=== PATIENT | female | born 1950 | race African-American/Black ===

== ENCOUNTER 2018-02-28 16:26 | Inpatient (IN) | payer OTHER ==
[2018-02-28 18:43] VITALS: BMI 18.5
--- NOTE | 2018-02-28 20:51 | HP ---
Admission ROS [facility] Chief Complaint: Seeking admission to rehab Allergies/Adverse Reactions: Allergies Allergy/AdvReac Type Severity Reaction Status Date / Time No Known Allergies Allergy Verified 02/28/18 19:29 History of Present Illness: 67 years old male with cocaine dependence is seeking admission to Rehab. This is patient;s first Rehab admission and first admission to [facility]. Patient reports medical history of hypertension, hyperlipidemia, anxiety and depression. She denies suicide attempt and suicidal ideation at this time. Exam Limitations: No Limitations - Ebola screening Have you traveled outside of the country in the last 21 days: No Have you had contact with anyone from an Ebola affected area: No Have you been sick,other than usual withdrawal symptoms: No Do you have a fever: No - Review of Systems Constitutional: No Symptoms Reported EENT: reports: No Symptoms Reported Respiratory: reports: No Symptoms reported Cardiac: reports: No Symptoms Reported GI: reports: No Symptoms Reported : reports: No Symptoms Reported Musculoskeletal: reports: No Symptoms Reported Integumentary: reports: No Symptoms Reported Neuro: reports: No Symptoms reported Endocrine: reports: No Symptoms Reported Hematology: reports: No Symptoms Reported Psychiatric: reports: No Sypmtoms Reported, Mood/Affect Appropiate, Orientated x3 Other Systems: Reviewed and Negative Patient History - Patient Medical History Hx Anemia: No Hx Asthma: No Hx Chronic Obstructive Pulmonary Disease (COPD): No Hx Cancer: No Hx Cardiac Disorders: No Hx Congestive Heart Failure: No Hx Hypertension: Yes (Benazapril) Hx Hypercholesterolemia: Yes (Simvarstatin) Hx Pacemaker: No HX Cerebrovascular Accident: No Hx Seizures: No Hx Dementia: No Hx Diabetes: No Hx Gastrointestinal Disorders: No Hx Liver Disease: No Hx Genitourinary Disorders: No Hx Sexually Transmitted Disorders: No Hx Renal Disease (ESRD): No Hx Thyroid Disease: No Hx Human Immunodeficiency Virus (HIV): No (Negative 2017) Hx Hepatitis C: No Hx Depression: Yes Hx Suicide Attempt: Yes (Denies suicide attempt or suicidal ideation at this time) Hx Bipolar Disorder: No Hx Schizophrenia: No - Patient Surgical History Past Surgical History: No - PPD History Previous Implant?: No Documented Results: Negative w/o proof Implanted On Prior [facility] Admission?: No PPD to be Administered?: Yes - Reproductive History Patient is a Female of Child Bearing Age (11 -55 yrs old): Yes LMP comment: Menopausal Patient : No - Smoking Cessation Smoking history: Current every day smoker Have you smoked in the past 12 months: Yes Aproximately how many cigarettes per day: 5 Hx Chewing Tobacco Use: No Initiated information on smoking cessation: Yes 'Breaking Loose' booklet given: 02/28/18 - Substance & Tx. History Hx Alcohol Use: No Hx Substance Use: Yes Substance Use Type: Cocaine Hx Substance Use Treatment: No Admission Physical Exam [facility] - Vital Signs Vital Signs: Vital Signs - 24 hr 02/28/18 18:40 Temperature 97.9 F Pulse Rate 78 Respiratory 18 Rate Blood Pressure 130/74 - Physical General Appearance: Yes: Within Normal Limits HEENTM: Yes: EOMI, Normal ENT Inspection, Normocephalic, Normal Voice, MARGUERITE Respiratory: Yes: Lungs Clear, Normal Breath Sounds, No Respiratory Distress Neck: Yes: Supple Breast: Yes: Breast Exam Deferred Cardiology: Yes: Regular Rhythm, Regular Rate Abdominal: Yes: Normal Bowel Sounds, Soft Genitourinary: Yes: Within Normal Limits Back: Yes: Normal Inspection Musculoskeletal: Yes: Within Normal Limits Extremities: Yes: Normal Capillary Refill, Normal Inspection Neurological: Yes: inoculator II-XII NML intact, Normal Mood/Affect Integumentary: Yes: Warm Lymphatic: Yes: Within Normal Limits - Diagnostic (1) Cocaine dependence Current Visit: Yes Status: Chronic (2) Hypertension Current Visit: Yes Status: Chronic (3) Hyperlipidemia Current Visit: Yes Status: Chronic Qualifiers: Hyperlipidemia type: unspecified Qualified Code(s): E78.5 - Hyperlipidemia , unspecified (4) Depression Current Visit: Yes Status: Chronic Qualifiers: Depression Type: unspecified Qualified Code(s): F32.9 - Major depressive disorder, single episode, unspecified (5) Anxiety Current Visit: Yes Status: Chronic Cleared for Admission [facility] - Detox or Rehab [facility] Level of Care: Observation Bed Claeared for Rehab Admission: Yes [facility] Breath Alcohol Content Breath Alcohol Content: 0 Urine Pregancy Test - Result Urine Test Results: Negative- NO Line Present Urine Drug Screen - Results Drug Screen Negative: No Urine Drug Screen Results: FRANCISCO-Cocaine Inpatient Rehab Admission - Initial Determination Are CD services needed?: Yes Free of communicable disease: Yes Not in need of hospitalization: Yes - Rehab Admission Criteria Previous failed treatment: Yes Poor recovery environment: Yes Comorbidities: Yes Lacks judgement: No Patient is meeting Inpatient Rehab admission criteria:: Yes
[2018-02-28] MEDS ORDERED: MAGNESIUM CITRATE 300 ML BOTTLE PO PRN (20:58)
[2018-02-28] MEDS ORDERED: LOPERAMIDE HCL 2 MG CAPSULE PO PRN (20:58)
[2018-02-28] MEDS ORDERED: ACETAMINOPHEN 325 MG TABLET (FP) PO PRN (20:58)
[2018-02-28] MEDS ORDERED: NICOTINE POLACRILEX 2 MG GUM BC PRN (20:58)
[2018-02-28] MEDS ORDERED: guaiFENesin/D-METHORPHAN HB 10 ML UNIT-DOSE CUPS PO PRN (20:58)
[2018-02-28] MEDS ORDERED: MAGNESIUM HYDROX 2400MG/30ML ORAL SUSPENSION 30 ML CUP PO PRN (20:58)
[2018-02-28] MEDS ORDERED: MENTHOL/PHENOL 1 EACH UD MM PRN (20:58)
[2018-02-28] MEDS ORDERED: P-EPHED 60MG/TRIPROLIDI 2.5MG TABLET PO PRN (20:58)
[2018-02-28] MEDS ORDERED: IBUPROFEN 400 MG TABLET (FP) PO PRN (20:58)
[2018-02-28] MEDS ORDERED: MAG HYDROX/AL HYDROX/SIMETH 30 ML UNIT-DOSE CUP PO PRN (20:58)
--- NOTE | 2018-02-28 21:02 | HP ---
Admission ROS [facility] - [facility] Allergies/Adverse Reactions: Allergies Allergy/AdvReac Type Severity Reaction Status Date / Time No Known Allergies Allergy Verified 02/28/18 19:29 - Ebola screening Have you traveled outside of the country in the last 21 days: No Have you had contact with anyone from an Ebola affected area: No Have you been sick,other than usual withdrawal symptoms: No Do you have a fever: No Patient History - Patient Medical History Hx Anemia: No Hx Asthma: No Hx Chronic Obstructive Pulmonary Disease (COPD): No Hx Cancer: No Hx Cardiac Disorders: No Hx Congestive Heart Failure: No Hx Hypertension: Yes (Benazapril) Hx Hypercholesterolemia: Yes (Lovarstatin) Hx Pacemaker: No HX Cerebrovascular Accident: No Hx Seizures: No Hx Dementia: No Hx Diabetes: No Hx Gastrointestinal Disorders: No Hx Liver Disease: No Hx Genitourinary Disorders: No Hx Sexually Transmitted Disorders: No Hx Renal Disease (ESRD): No Hx Thyroid Disease: No Hx Human Immunodeficiency Virus (HIV): No (Negative 2017) Hx Hepatitis C: No Hx Depression: Yes Hx Suicide Attempt: Yes (Denies suicide attempt or suicidal ideation at this time) Hx Bipolar Disorder: No Hx Schizophrenia: No - Patient Surgical History Past Surgical History: No - PPD History Previous Implant?: No Documented Results: Negative w/o proof Implanted On Prior [facility] Admission?: No - Reproductive History Patient : No - Smoking Cessation Smoking history: Current every day smoker Have you smoked in the past 12 months: Yes Aproximately how many cigarettes per day: 5 Hx Chewing Tobacco Use: No Initiated information on smoking cessation: Yes Admission Physical Exam S - Vital Signs Vital Signs: Vital Signs - 24 hr 02/28/18 18:40 Temperature 97.9 F Pulse Rate 78 Respiratory 18 Rate Blood Pressure 130/74 - Diagnostic (1) Cocaine dependence Current Visit: Yes Status: Chronic (2) Hypertension Current Visit: Yes Status: Chronic (3) Hyperlipidemia Current Visit: Yes Status: Chronic Qualifiers: Hyperlipidemia type: unspecified Qualified Code(s): E78.5 - Hyperlipidemia , unspecified (4) Depression Current Visit: Yes Status: Chronic Qualifiers: Depression Type: unspecified Qualified Code(s): F32.9 - Major depressive disorder, single episode, unspecified (5) Anxiety Current Visit: Yes Status: Chronic [facility] Breath Alcohol Content Breath Alcohol Content: 0 Urine Pregancy Test - Result Urine Test Results: Negative- NO Line Present Urine Drug Screen - Results Drug Screen Negative: No Urine Drug Screen Results: FRANCISCO-Cocaine
[2018-02-28] MEDS ORDERED: MELATONIN 5 MG TABLETS PO PRN (22:00)
[2018-03-01] MEDS: ATORVASTATIN CA 20 MG TABLET (FP) PO SCH ×2 (00:30→23:57)
[2018-03-01] MEDS: THIAMINE HCL 100 MG TABLET (FP) PO SCH ×2 (00:30→23:57)
[2018-03-01 01:32] LABS: URINE APPEARANCE CLEAR; URINE BILIRUBIN NEGATIVE (<2.0 mg/dL); URINE COLOR LTYELLOW; URINE GLUCOSE (UA) NEGATIVE (NEGATIVE); URINE KETONE NEGATIVE (NEGATIVE); URINE LEUK ESTERASE NEGATIVE (NEGATIVE); URINE NITRITE NEGATIVE (NEGATIVE); URINE PROTEIN NEGATIVE (NEGATIVE); URINE UROBILINOGEN NEGATIVE mg/dL (0.2-1.0)
[2018-03-01] MEDS ORDERED: TUBERCULIN PPD 5 TU/0.1ML VIAL ID ONE (07:15)
[2018-03-01] MEDS: NICOTINE 14 MG/24 HOURS TOPICAL PATCH TD SCH (09:26)
[2018-03-01] MEDS: LISINOPRIL 20 MG TABLET (FP) PO SCH (09:26)
[2018-03-01] MEDS: PRENATAL VITAMINS W/ FOLIC ACID TABLET (FP) PO SCH (09:26)
--- NOTE | 2018-03-01 09:49 | EKG ---
Test Reason : Blood Pressure : / mmHG Vent. Rate : 065 BPM Atrial Rate : 065 BPM P-R Int : 150 ms QRS Dur : 082 ms QT Int : 428 ms P-R-T Axes : 072 063 060 degrees QTc Int : 445 ms NORMAL SINUS RHYTHM NORMAL ECG NO PREVIOUS ECGS AVAILABLE Confirmed by Abel Pinon MD ([id number]) on 03/01/2018 9:49:13 AM Referred By: Confirmed By:Abel Pinon MD
[2018-03-01 10:12] LABS: HEMATOCRIT 39.4 % (32.4-45.2); HEMOGLOBIN 12.4 GM/dL (10.7-15.3); MCH 26.8 pg (25.7-33.7); MCHC 31.5 g/dl (32.0-36.0); MEAN CELL VOLUME 85.1 fl (80-96); MEAN PLT VOLUME 7.4 fl (7.5-11.1); PLATELET COUNT 347 K/MM3 (134-434); RBC 4.63 M/mm3 (3.60-5.2); RDW 16.1 % (11.6-15.6); WHITE BLOOD COUNT 6.8 K/mm3 (4.0-10.0)
[2018-03-01 17:40] LABS: ALBUMIN 3.4 g/dl (3.4-5.0); ANION GAP 11 MMOL/L (8-16); BLOOD UREA NITROGEN 20 mg/dL (7-18); CALCIUM 9.2 mg/dL (8.5-10.1); CHLORIDE 107 mmol/L (98-107); CO2 25 mmol/L (21-32); GLUCOSE,RANDOM 64 mg/dL (74-106); SODIUM 143 mmol/L (136-145)
[2018-03-01 17:45] LABS: ALK PHOS 93 U/L (45-117); CREATININE 1.1 mg/dL (0.55-1.02); SGOT/AST 16 U/L (15-37); SGPT/ALT 14 U/L (12-78); TOT PROT 7.5 g/dl (6.4-8.2)
[2018-03-01 18:00] LABS: BILIRUBIN,TOTAL < 0.1 mg/dL (0.2-1.0)
--- NOTE | 2018-03-02 09:49 | HP ---
Psychiatrist Admission - Data Date of interview: 03/02/18 Admission source: [facility] Identifying data: This is the first admission to [facility] inpatient rehabilitation for this 67 yo single chidless AA female,undomiciled,supported by SSI. Medical History: Significant for HTN,Hyperlipidemia,Chronic arthritis. Psychiatric History: denies Physical/Sexual Abuse/Trauma History: denies Additional Comment: criminal history-3 years incarceration,not willing to discuss. Vital Signs: Vital Signs - 24 hr 03/02/18 03/02/18 03:30 06:52 Temperature 97.2 F L Pulse Rate 66 Respiratory 16 16 Rate Blood Pressure 121/71 Allergies/Adverse Reactions: Allergies Allergy/AdvReac Type Severity Reaction Status Date / Time No Known Allergies Allergy Verified 02/28/18 19:29 Date of last physical exam: 02/28/18 Concur with the findings of this exam: Yes - Substance Abuse/Tx History Hx Alcohol Use: Yes (socially) Hx Substance Use: Yes (cocaine/crack since early ,$100 daily) Substance Use Type: Cocaine Hx Substance Use Treatment: Yes (this is her first inpatient rehabilitation, longest abstinence 3 years) Mental Status Exam - Mental Status Exam Alert and Oriented to: Time, Place, Person Cognitive Function: Grossly Intact Patient Appearance: Well Groomed Mood: Sad Affect: Mood Congruent, Labile Patient Behavior: Cooperative Speech Pattern: Clear Voice Loudness: Normal Thought Process: Goal Oriented Thought Disorder: Not Present Hallucinations: Denies Suicidal Ideation: Denies Homicidal Ideation: Denies Insight/Judgement: Fair Sleep: Fair Appetite: Fair Muscle strength/Tone: Normal Gait/Station: Normal Psychiatric Findings - Problem List ([place] 1, 2,3) (1) Cocaine dependence Current Visit: Yes Status: Chronic (2) Hyperlipidemia Current Visit: Yes Status: Chronic Qualifiers: Hyperlipidemia type: unspecified Qualified Code(s): E78.5 - Hyperlipidemia , unspecified (3) Hypertension Current Visit: Yes Status: Chronic Qualifiers: Hypertension type: essential hypertension Qualified Code(s): I10 - Essential (primary) hypertension (4) Chronic arthritis Current Visit: Yes Status: Chronic - Initial Treatment Plan Initial Treatment Plan: Will monitor progress.
[2018-03-02] MEDS: PRENATAL VITAMINS W/ FOLIC ACID TABLET (FP) PO SCH (09:51)
[2018-03-02] MEDS: NICOTINE 14 MG/24 HOURS TOPICAL PATCH TD SCH (09:51)
[2018-03-02] MEDS: LISINOPRIL 20 MG TABLET (FP) PO SCH (09:52)
--- NOTE | 2018-03-02 12:39 | PN ---
S Progress Note Note: Vital Signs Temperature 97.2 F L 03/02/18 06:52 Pulse Rate 74 03/02/18 09:52 Respiratory Rate 16 03/02/18 06:52 Blood Pressure 105/62 03/02/18 09:52 O2 Sat by Pulse Oximetry (%) Patient evaluated by shade cloth finisher rec: Ensure BID PO. Orders place are per recommendations. Continue to monitor
[2018-03-02] MEDS: THIAMINE HCL 100 MG TABLET (FP) PO SCH (21:49)
[2018-03-02] MEDS: ATORVASTATIN CA 20 MG TABLET (FP) PO SCH (21:49)
[2018-03-03 07:06] VITALS: TEMP 97.7
[2018-03-03 09:22] VITALS: BP 139/67; PULSE 81
[2018-03-03] MEDS: PRENATAL VITAMINS W/ FOLIC ACID TABLET (FP) PO SCH (09:48)
[2018-03-03] MEDS: LISINOPRIL 20 MG TABLET (FP) PO SCH (09:48)
[2018-03-03] MEDS: NICOTINE 14 MG/24 HOURS TOPICAL PATCH TD SCH (09:49)
--- NOTE | 2018-03-03 12:00 | PN ---
S Progress Note Note: Patient was d/c today to another inpatient facility due to lack of coverage at our program.See staff notes for details.
== END 2018-03-03 13:58 | disposition home or self-care (01) | DRG 895 ==
LOC: YASAS 16:26 → Y3E 19:44
PROVIDERS: ADMIT Psychiatry & Neurology Psychiatry; ATTEND Psychiatry & Neurology Psychiatry
PROC: HZ42ZZZ Group Counseling for Substance Abuse Treatment, Cognitive-Behavioral (ICD-10-PCS; principal; 2018-02-28)
DX: F14.20 Cocaine dependence, uncomplicated (principal); F17.210 Nicotine dependence, cigarettes, uncomplicated; F32.9 Major depressive disorder, single episode, unspecified; F41.9 Anxiety disorder, unspecified; I10 Essential (primary) hypertension; E78.5 Hyperlipidemia, unspecified; M12.9 Arthropathy, unspecified; Z59.0 Homelessness
CPT/HCPCS: 36415; 80053; 81003; 85027; 86593; 93005; 93010